=== PATIENT | male | born 1980 | race Caucasian/White ===

== ENCOUNTER 2018-03-14 15:02 | Emergency (ER) | payer OTHER ==
[~2018-03-14] VITALS: Ht 177.8 cm; Wt 79.4 kg
[2018-03-14 15:07] VITALS: BP 133/63
[2018-03-14] MEDS ORDERED: ABILIFY10 MG PO (15:11)
[2018-03-14] MEDS ORDERED: ESKALITH300 MG PO (15:12)
[2018-03-14] MEDS ORDERED: NAPROSYN500 MG PO (15:16)
== END 2018-03-14 15:39 | disposition home or self-care (01) ==
LOC: ER 15:02
DX: M25.532 Pain in left wrist (principal)